=== PATIENT | male | born 1975 | race Caucasian/White ===

== ENCOUNTER 2025-10-14 18:31 | Emergency (ER) | payer OTHER, SELFPAY ==
[2025-10-14 18:34] VITALS: BP 179/84
--- NOTE | 2025-10-14 19:02 | ED.GENMED ---
History of Present Illness
General
Chief Complaint: Eye Problems
Source: patient
Time Seen by Provider: 10/14/25 18:39
History of Present Illness
History of Present Illness:
This patient is a 50-year-old male who presents the emergency department with eye complaints. He states that he felt perfectly well earlier today and was doing a lot of work outside. He describes using a blower on leaves, raking and bagging
leaves. Then, around 5:30 PM he was in the garage wiping his dog's paws and started to feel that his left eye felt 'irritated'. He says it does not feel painful but rather like something might be in there. He went inside and looked in the mirror
and noted that the conjunctive a medially looked bloody. He denies blunt force trauma, double vision, blurry vision, or any visual changes, drainage, headache, nausea, vomiting, numbness, or other complaints.
Past History
Past History
ED Past Medical History: Other (Hypertension, hypercholesterolemia, insulin-dependent diabetes, hearing loss, reflux)
ED Past Surgical History: Orthopedic and Other (Ear)
Social History
Tobacco: Non-smoker
Alcohol: Occasional
Drug: None
Personal:
Living: with family
Phy Exam
Physical Exam
Physical Exam:
GENERAL: Alert , in no apparent distress
EYE: pupils equal and reactive, no photophobia, no nystagmus. No fb noted on slit lamp exam, flouescein exam nl, no fb or abrasion/haziness/injury. Subconj hemorrhage noted medially.
NECK: Supple, no significant adenopathy.
ENT: o/p clr, mmm.
CARDIAC: Regular rate and rhythm .
LUNGS: Clear breath sounds bilaterally, no acute respiratory distress, no wheezes/rales/rhonchi
ABDOMEN: Soft, without focal tenderness
NEUROLOGICAL: Alert and oriented, no focal neuro deficits
SKIN: Warm and dry, skin intact.
MUSCULOSKELETAL: No edema, well perfused.
PSYCH: Normal and appropriate interaction.
Course
Orders/Labs/Results
Orders:
Orders
10/14/25 19:04
Visual Acuity- Treatment ONCE
10/14/25 20:06
Tetracaine HCl [Tetracaine 0.5% Ophthalmic Solution] 1 drop .ROUTE .STK-MED ONE
Vital Signs
Initial and Last Documented VS:
Initial Vital Signs
Temp Pulse Resp BP Pulse Ox
98 F 95 16 179/84 99
10/14/25 18:34 10/14/25 18:34 10/14/25 18:34 10/14/25 18:34 10/14/25 18:34
Last Documented Vital Signs
Temp Pulse Resp BP Pulse Ox
98 F 83 16 136/76 99
10/14/25 18:34 10/14/25 19:58 10/14/25 19:58 10/14/25 19:58 10/14/25 19:58
*Pulse Oximetry
SaO2: 99
Oxygen Mode of Delivery: Room air
Patient hypoxic: no
*Critical Care Note
Total Time (30-74mins, 75-104mins- exclusive of procedures): Not Applicable
Update Note
Update Note:
Patient presents to the Emergency Department with ___eye irritation with medial blood noted
Number and Complexity of Problems Addressed at the Encounter
� Chronic conditions affecting care:
� Acute Exacerbation and/or Progression of Chronic Illness:
� Differential Diagnosis includes: But not limited to conjunctivitis, foreign body, corneal abrasion, subconjunctival hemorrhage, glaucoma, etc. etc. etc.
Amount and/or Complexity of Data to be Reviewed and Analyzed
� I performed an independent evaluation of and my interpretation is:
EKG:
CT:
Xrays:
Laboratory Studies:
Other:
� Review of other/old records reveals:
� Clinical information was obtained by an independent historian:
� Prescriptions/Medications Considered but not given:
� Further testing considered but not performed:
Risk of Complications and/or Morbidity or Mortality of Patient Management
� Social determinants of health affecting care:
� Discussion with other providers (PCP, Hospitalists, Consultants, etc):
� Escalation of care including admission/observation vs risk of discharge considered: History and exam very consistent with conjunctival hemorrhage. Fortunately no corneal injury noted, will confirm visual acuity not abnormal,
recommend close Optho follow-up, discussed with patient precautions and expectations and reasons to return to the ER
ED Attending Note
-
Portions of this chart may have been created with voice recognition software.� Occasional wrong word or��sound alike� substitutions may have occurred due to the inherent limitations of voice recognition software.
Discharge Plan
Departure
Patient Disposition: Home (Routine Discharge)
Date of Disposition: 10/14/25
Time of Disposition: 19:48
Patient with high blood pressure during this ER visit?: Yes
Condition: Good
Discharge Problem:
Subconjunctival hemorrhage
Instructions: Subconjunctival Hemorrhage, BLOOD PRESSURE
Prescriptions:
New
sulfacetamide sodium 10 % drops
2 drp ophthalmic (eye) Q4H Qty: 15 0RF
Referrals:
Maritza Garcia PA-C [Family Provider]
Activity Restrictions/Additional Instructions:
PLEASE SEE YOUR EYE DOCTOR THIS WEEK IN CLOSE FOLLOW UP. IF YOU DEVELOP PERSISTENT/NEW PAIN, DRAINAGE, CHANGE IN VISION, HEADACHE, NAUSEA, VOMITING, GET WORSE, OR OTHER WORRISOME SIGNS, GO TO THE ER IMMEDIATELY!
Interventions
Interventions:
*Risk Screen - Suicide Last Done: 10/14/25 18:36
*General Assessment Last Done: 10/14/25 19:58
*Neglect/Abuse Screening Last Done: 10/14/25 18:36
*ED- Fall Risk Assessment Last Done: 10/14/25 19:58
*ED COVID-19 Vaccine History Last Done: 10/14/25 19:58
*ED Influenza Vaccine History Last Done: 10/14/25 19:58
*Nursing Disposition Last Done: 10/14/25 20:01
Discharge Date and Time
Discharge Date/Time: 10/14/25 20:01
Print Language: AUSTRIAN
[2025-10-14 19:58] VITALS: BP 136/76
== END 2025-10-14 20:01 | disposition home or self-care (01) ==
LOC: EMR 18:31
PROVIDERS: EMERGENCY PHYSICIAN Emergency Medicine; FAMILY PHYSICIAN Physician Assistant
DX: H11.32 Conjunctival hemorrhage, left eye (principal); E11.9 Type 2 diabetes mellitus without complications; E78.00 Pure hypercholesterolemia, unspecified; I10 Essential (primary) hypertension; Z79.4 Long term (current) use of insulin
CPT/HCPCS: 99283

== ENCOUNTER 2025-10-25 12:14 | Emergency (ER) | payer OTHER, SELFPAY ==
[2025-10-25 12:17] VITALS: BP 168/87
--- NOTE | 2025-10-25 12:47 | ED.GENMED ---
History of Present Illness
General
Chief Complaint: Skin Problem
Source: patient
Exam Limitations: none
Time Seen by Provider: 10/25/25 12:39
Nursing documentation reviewed up to this point in time: agreed with
History of Present Illness
History of Present Illness:
50-year-old male diabetic abscess to the right groin started about 10 days ago increased pain and swelling some drainage no fever blood sugar was up a little bit he thought his pump was abnormally switch the site now is better, never had a staph
infection or abscess before has not been on antibiotics
Past History
Past History
ED Past Medical History: IDDM and Other (Hypertension, hypercholesterolemia, insulin-dependent diabetes, hearing loss, reflux)
ED Past Surgical History: Orthopedic and Other (Ear)
Social History
Tobacco: Non-smoker
Alcohol: Occasional
Drug: None
Personal:
Living: with family
Employment: Employed
Phy Exam
Physical Exam
Physical Exam:
Physical Exam
General: no apparent distress, not acutely ill
Neck: No jaundice
Heart: s1/s2 regular rate and rhythm, no murmur. equal radial pulses.
Lungs: no acute respiratory distress.
Neuro: alert and oriented. no focal neurological deficits
Skin: Right upper thigh fluctuant abscess with surrounding cellulitis 3 to 4 cm not involving the perirectal region or scrotum
Psychiatric: well kept. interactive and cooperative
Extremities: no edema.
Course
Orders/Labs/Results
Orders:
Orders
10/25/25 12:48
Wound Culture [Wound/Abscess/Other Culture] Routine
JJ Source: Abscess
Specimen Description:
Date Specimen was Collected: 10/25/25
Time Specimen was Collected: 12:51
Doxycycline [Vibramycin] 100 mg PO NOW STA
HYDROmorphone [Dilaudid] 1 mg IV NOW STA
10/25/25 12:49
Piperacillin/Tazo 3.375 Gram [Zosyn] 3.375 gram in 50 ml IV NOW
Vital Signs
Initial and Last Documented VS:
Initial Vital Signs
Temp Pulse Resp BP Pulse Ox
98.2 F 92 16 168/87 99
10/25/25 12:17 10/25/25 12:17 10/25/25 12:17 10/25/25 12:17 10/25/25 12:17
Last Documented Vital Signs
Temp Pulse Resp BP Pulse Ox
98.2 F 92 16 168/87 99
10/25/25 12:17 10/25/25 12:17 10/25/25 12:17 10/25/25 12:17 10/25/25 12:48
Procedures
Incision/Drainage/Joint Aspiration
Right Upper Proximal Leg:
Anethesia: 1% Lidocaine with Epi and other (marcaine)
Preparation: cleaned with Betadine
Type of procedure: drain
Nature of site: abscess
Description of abscess: less than 3cm and drainage
Loculations broken up: Yes
How much fluid was obtained?: small amount
Fluid description: purulent
Treatment: packed with gauze
MDM/Problems Addressed
Differential Diagnosis Includes:
Abscess cellulitis
MDM/Problems Addressed:
Cellulitis abscess to the diabetic
Chronic conditions affecting care: DM
Acute Exacerbation and/or Progression of Chronic Illness: DM
*Pulse Oximetry
SaO2: 99
Oxygen Mode of Delivery: Room air
Patient hypoxic: no
*Critical Care Note
Total Time (30-74mins, 75-104mins- exclusive of procedures): Not Applicable
Update Note
Update Note:
Update IV antibiotics, IV analgesia, local anesthetic drained cultured packed
ED Attending Note
-
Portions of this chart may have been created with voice recognition software.� Occasional wrong word or��sound alike� substitutions may have occurred due to the inherent limitations of voice recognition software.
Discharge Plan
Departure
Patient Disposition: Home (Routine Discharge)
Date of Disposition: 10/25/25
Time of Disposition: 13:16
Patient with high blood pressure during this ER visit?: No
Condition: Good
Discharge Problem:
Abscess
Instructions: Cellulitis (Skin Infection), Adult (DC), Skin Abscess
Prescriptions:
New
doxycycline hyclate 100 mg tablet
100 mg PO BID Qty: 20 0RF
amoxicillin-pot clavulanate 875-125 mg tablet
1 tab PO Q12H Qty: 20 0RF
ibuprofen 600 mg tablet
600 mg PO Q8H PRN (Reason: Pain) Qty: 20 0RF
No Action
sulfacetamide sodium 10 % drops
2 drp ophthalmic (eye) Q4H Qty: 15 0RF
Activity Restrictions/Additional Instructions:
Keep wound covered you can shower as usual, pull the packing out in 2 days
Continue antibiotics as prescribed return to the ER for worsening symptoms--- increased pain redness drainage fever
Interventions
Interventions:
*Risk Screen - Suicide Last Done: 10/25/25 12:18
*Neglect/Abuse Screening Last Done: 10/25/25 12:18
Discharge Date and Time
Print Language: KAZAKH
[2025-10-25] MEDS: ZOSYN 50 IV (12:54)
[2025-10-25] MEDS: VIBRAMYCIN 100 MG PO (12:54)
[2025-10-25] MEDS: DILAUDID 1 MG IV (12:54)
[2025-10-25 14:17] VITALS: BP 124/75
== END 2025-10-25 14:18 | disposition home or self-care (01) ==
LOC: EMR 12:14
PROVIDERS: EMERGENCY PHYSICIAN Emergency Medicine; FAMILY PHYSICIAN Physician Assistant
DX: L02.415 Cutaneous abscess of right lower limb (principal); E11.9 Type 2 diabetes mellitus without complications; E78.00 Pure hypercholesterolemia, unspecified; I10 Essential (primary) hypertension; Z79.4 Long term (current) use of insulin
CPT/HCPCS: 10060; 96374; 96375; 99284; 87070; 87147; 87205